=== PATIENT | male | born 1950 | race Caucasian/White ===

== ENCOUNTER 2022-07-01 09:23 | Outpatient (CLI) | payer OTHER, SELFPAY ==
[2022-07-01 13:53] LABS: Chloride* 108 mmol/L (96-114)
[2022-07-01 13:54] LABS: Potassium* 4.6 mmol/L (3.6-5.1); Sodium* 140 mmol/L (135-149)
[2022-07-01 13:56] LABS: Carbon Dioxide* 26 mmol/L (20-32); Cholesterol* 132 mg/dL (90-199); Creatinine* 0.8 mg/dL (0.5-1.5); Estimated Glomerular Filt Rate 93 ml/min
[2022-07-01 13:57] LABS: Blood Urea Nitrogen* 17 mg/dL (7-30); Calcium* 9.1 mg/dL (8.4-10.6); Glucose* 105 mg/dL (60-115); HDL Cholesterol* 50 mg/dL (>=40); LDL Cholesterol Calculated 51 mg/dL (<100); Triglycerides* 155 mg/dL (40-149)
== END 2022-07-01 09:24 | disposition home or self-care (01) ==
PROVIDERS: Visit Provider Family Medicine
DX: E78.5 Hyperlipidemia, unspecified (principal); Z13.1 Encounter for screening for diabetes mellitus
CPT/HCPCS: 80048; 80061

== ENCOUNTER 2023-01-30 13:59 | Outpatient (CLI) | payer OTHER, SELFPAY | END 2023-01-30 14:00 | disposition home or self-care (01) | PROVIDERS: PCP Family Medicine; Visit Provider Nurse Practitioner Family | DX: E78.5 Hyperlipidemia, unspecified (principal); R58 Hemorrhage, not elsewhere classified; I25.10 Atherosclerotic heart disease of native coronary artery without angina pectoris | CPT/HCPCS: 80076; 85610; 85730 ==

== ENCOUNTER 2023-08-03 08:55 | Outpatient (CLI) | payer OTHER, SELFPAY | END 2023-08-03 08:56 | disposition home or self-care (01) | PROVIDERS: PCP Family Medicine; Visit Provider Family Medicine | DX: E78.2 Mixed hyperlipidemia (principal); Z79.899 Other long term (current) drug therapy | CPT/HCPCS: 80048; 80061 ==

== ENCOUNTER 2024-10-03 08:54 | Outpatient (CLI) | payer MEDICARE, OTHER, SELFPAY | END 2024-10-03 08:55 | disposition home or self-care (01) | PROVIDERS: PCP Family Medicine; Visit Provider Family Medicine | DX: E78.00 Pure hypercholesterolemia, unspecified (principal); I10 Essential (primary) hypertension | CPT/HCPCS: 80048; 80061 ==